=== PATIENT | male | born 1990 | race Caucasian/White ===

== ENCOUNTER → 2018-11-02 13:02 | Outpatient (CLI) | payer OTHER, SELFPAY ==
--- NOTE | 2018-11-02 13:12 | RAD_ITS ---
STUDY: X-RAY - ABDOMEN/PELVIS REASON FOR EXAM: Male, 28 years old. History of kidney stones. TECHNIQUE: Two AP supine views of the abdomen and pelvis. COMPARISON: None. FINDINGS: Double-J stent over the genitourinary system with multiple presumed left renal calculi. Probable mild calcifications along the proximal ureteral stent at the L1-2 level. There is an unremarkable bowel gas pattern. There is no demonstrated free abdominal air. The visualized liver, spleen and kidneys are grossly normal in size and morphology. Normal soft tissue structures. Normal visualized osseous structures. RAD/Abdomen Single View IMPRESSION: Nephrolithiasis with probable small calculi along the left proximal ureteral stent. Electronically Signed: Melanie Correa MD at 6:41 EST , Service support ,
== END ==
PROVIDERS: Family Provider Family Medicine; PCP Family Medicine; Referring Provider Nurse Practitioner Adult Health; Visit Provider Nurse Practitioner Adult Health
DX: N20.0 Calculus of kidney (principal)
CPT/HCPCS: 74018

== ENCOUNTER 2018-11-03 05:51 | Day surgery (SDC) | payer OTHER, SELFPAY ==
[2018-11-03 06:17] VITALS: BP 117/67; PULSE 58; RESP 16; TEMP 36.9; O2SAT 97; BMI 27.7
[2018-11-03] MEDS: Cefazolin 2 GM in 0.9% Normal Saline 100 ML IV (07:20)
--- NOTE | 2018-11-03 07:23 | DCINST_ITS ---
Discharge Diet: Light diet - advance as tolerated Discharge Activity: Return to Normal Activity Allergies/Adverse Reactions: Allergies No Known Allergies Allergy (Verified 11/02/18 14:23) Medications to take at Discharge Acetaminophen [Tylenol Extra Strength] 500 mg PO Q4H PRN PRN #20 tablet 11/03/18 Ibuprofen 600 mg PO Q6H PRN PRN #20 tablet 11/03/18 Primary Care Physician: Bladimir Gray MD [Primary Care Provider] - Test Results: Test results from this visit will be discussed in further detail at your follow- up appointment, if applicable. Please Follow Up With: Dayne Metcalf MD When: please call to make an appointment.
--- NOTE | 2018-11-03 08:07 | PCM.OPRPT ---
Report of Operation Date of Procedure: 11/03/18 Pre-Operative Diagnosis: left multiple fragments in the left kidney s/p eswl. Post-Operative Diagnosis: same Surgery/Procedure Performed:: cystoscopy, left ureteroscopy laser lithotripsy and removal of stent, left retrograde pyelogram Description of Surgical Findings:: 28-year-old male who underwent shockwave lithotripsy and stent placement found in the office he still has significant amount of fragments in the right kidney I recommended we finished treating these fragments with laser lithotripsy. 28-year-old male taken back to the operating room after smooth induction of general anesthesia he was placed supine on the table grabbed the existing stent with a string pulled out the meatus advanced a wire through the stent and over the wire went in with a flexible ureteroscope was get able to get up into the ureter along the proximal ureter had like a lot of inflammation like a ureteral fold may look like mass in the mid part of the ureter I think it was just the ureteral inflammation is open channel got up to the kidney and on x-ray he had a stone fragment in the upper pole stone fragment the midpole stone fragment the upper pole calyx in the lower pole fragment started lasering the upper pole fragment laser this little tiny pieces used a 200 ?m laser fiber settings were 6 Hz and 1.6 J and increased hertz as the laser stones are breaking I then went to the upper mid pole and there was a stone there but it was stuck in the parenchyma of the kidney lasered most of the stone off the parenchyma of the kidney took some time is really hard stone that was embedded in the parenchyma. I then went down the lower pole and there is a bunch of fragments of lower pole these were laser little tiny pieces and then in the pelvis of the kidney there is some other fragments again these were embedded in the pelvis the there were lasered off the pelvic wall lasered free and then laser little tiny pieces at the end of the case and lasered all the stone the little tiny pieces that should all pass I did not think that he needed stent to see very been stented had a nice dilated ureter so worked my way down the ureter we did a retrograde pyelogram to delineate the anatomy and again this showed the scatter weird proximal ureter with a fold in it I think is dilation of the ureter with inflammation of the ureter wall. Drain the bladder and removed the ureteroscope and the stent was placed the patient anesthetic is currently reversed. Type of Anesthesia:: General Drains: NO stent - Admit VTE Documentation VTE Present on Admission: No VTE Mechan Device Prophylaxis: SCD's
[2018-11-03 08:20] VITALS: BP 117/67; BP 132/81; PULSE 56; RESP 14; TEMP 36.1; O2SAT 98
[2018-11-03 08:30] VITALS: BP 111/70; BP 117/67; PULSE 59; RESP 14; O2SAT 98
[2018-11-03 08:45] VITALS: BP 115/69; BP 117/67; PULSE 55; RESP 16; O2SAT 99
[2018-11-03 08:59] VITALS: BP 113/66; BP 117/67; PULSE 62; RESP 16; TEMP 36.3; O2SAT 100
[2018-11-03 09:41] VITALS: BP 114/62; BP 117/67; PULSE 64; RESP 16; TEMP 36.3; O2SAT 100
== END 2018-11-03 09:43 | disposition home or self-care (01) ==
LOC: SDC 05:52 → AC 05:58
PROVIDERS: Family Provider Family Medicine; PCP Family Medicine; Referring Provider Urology; Visit Provider Urology
PROC: 0TJ98ZZ Inspection of Ureter, Via Natural or Artificial Opening Endoscopic (ICD-10-PCS; CPT 52352; principal; 2018-11-03 07:20)
DX: N20.0 Calculus of kidney (principal); Z48.816 Encounter for surgical aftercare following surgery on the genitourinary system; Z87.442 Personal history of urinary calculi; Z87.891 Personal history of nicotine dependence
CPT/HCPCS: 00918; 52353; 76000; J7120; C1769; J2405

== ENCOUNTER → 2018-11-20 10:44 | Outpatient (CLI) | payer OTHER, SELFPAY ==
[2018-11-03 06:17] VITALS: BMI 27.7
--- NOTE | 2018-11-20 10:47 | RAD_ITS ---
STUDY: X-RAY - ABDOMEN/PELVIS REASON FOR EXAM: Male, 28 years old. Status post removal of kidney stones and ureteral stent, follow-up TECHNIQUE: Two AP supine views of the abdomen and pelvis. COMPARISON: 2 AP supine views of the abdomen and pelvis November 02, 2018 and FINDINGS: Non-visualized lung bases. There is an unremarkable bowel gas pattern. There is no demonstrated free abdominal air. A few small calcifications still project over the left renal shadow, consistent with stones. The double-J ureteral stent has been removed. The visualized liver, spleen, and right renal shadow are grossly normal in size and morphology. Normal soft tissue structures. Normal visualized osseous structures. RAD/Abdomen Single View IMPRESSION: Left nephrolithiasis decreased in number and size. Left ureteral stent removed. Nonspecific bowel gas pattern. Electronically Signed: Yehuda Rodriguez MD at 19:41 EST , Service support ,
== END ==
PROVIDERS: Family Provider Family Medicine; PCP Family Medicine; Referring Provider Urology; Visit Provider Urology
DX: N20.0 Calculus of kidney (principal)
CPT/HCPCS: 74018

== ENCOUNTER → 2019-03-19 13:24 | Outpatient (CLI) | payer OTHER, SELFPAY ==
[2019-03-19 15:20] LABS: Anion Gap 9 (5-15); BUN 13 mg/dL (7-18); BUN/Creat Ratio 14.5 RATIO (10-20); Calcium,Total 8.6 mg/dL (8.5-10.1); Chloride 104 mmol/L (98-107); EST Glomerular Filtration Rate 107 mL/min (>60); Est Glom Filt Rate - Afr Amer 129 mL/min (>60); Glucose 76 mg/dL (74-106); Potassium 3.7 mmol/L (3.5-5.1); Sodium Level 141 mmol/L (136-145)
[2019-03-19 15:44] LABS: PTHIN 60.4 pg/mL (18.4-80.1)
== END ==
PROVIDERS: Family Provider Family Medicine; PCP Family Medicine; Referring Provider Urology; Visit Provider Urology
DX: N20.0 Calculus of kidney (principal)
CPT/HCPCS: 36415; 80048; 83970